=== PATIENT | male | born 1950 | race Caucasian/White ===

== ENCOUNTER 2018-09-17 13:14 | Inpatient (IN) | payer BC, MEDICARE, OTHER ==
[~2018-09-17] VITALS: Ht 182.9 cm; Wt 86.6 kg
--- NOTE | 2018-09-17 13:40 | NUR ---
BIB [facility], OFF & ON DIZZINESS X 1 WK. BG 131. DENIES NUMBNESS/TINGLING @ THIS TIME. EXPERIENCING WEAKNESS WELL. PT IS AOX4, TACHYCARDIC, RR EVEN AND UNLABORED. SKIN INTACT AND NO ACUTE DISTRESS NOTED. HOOKED ON MONITOR AND READY FOR EVAL. AT BEDSIDE.
[2018-09-17] MEDS ORDERED: IV NS 0.9% 500 ML BAG IV ONE (14:00)
[2018-09-17 14:18] LABS: BASOPHILS # (AUTO) 0.1 /CMM (0.0-0.2); BASOPHILS % (AUTO) 0.8 % (0.0-2.0); EOSINOPHILS % (AUTO) 0.4 % (0.0-6.0); HEMATOCRIT 53 % (39-51); HEMOGLOBIN 17.2 g/dL (13.5-17.5); LYMPHOCYTES # (AUTO) 0.8 /CMM (0.8-4.8); LYMPHOCYTES % (AUTO) 7.1 % (20.0-44.0); MEAN CORPUSCULAR HGB CONC 33 g/dl (31.0-36.0); MEAN CORPUSCULAR VOLUME 86 fL (80-96); MONOCYTES # (AUTO) 1.4 /CMM (0.1-1.30); MONOCYTES % (AUTO) 11.9 % (2.0-12.0); NEUTROPHILS # (AUTO) 9.2 /CMM (1.8-8.9); NEUTROPHILS % (AUTO) 79.8 % (43.0-81.0); PLATELET COUNT (AUTO) 367 /CMM (150-450); WHITE BLOOD COUNT (AUTO) 11.5 K/uL (4.3-11.0)
[2018-09-17 14:25] LABS: CALCIUM, SERUM 9.9 mg/dL (8.5-10.1); CREATININE 1.6 mg/dL (0.6-1.3); POTASSIUM 3.8 mmol/L (3.5-5.1)
[2018-09-17 14:30] LABS: ALBUMIN 3.2 g/dL (3.4-5.0); BILIRUBIN,DIRECT 0.1 mg/dL (0.0-0.2); BILIRUBIN,TOTAL 0.5 mg/dL (0.2-1.0); TOTAL PROTEIN, SERUM 7.1 g/dL (6.4-8.2)
[2018-09-17] MEDS ORDERED: ONDANSETRON HCL/PF 4 MG/2 ML VIAL IV ONE (14:30)
[2018-09-17] MEDS ORDERED: IV NS 0.9% 1,000 ML BAG IV ONE (14:30)
[2018-09-17] MEDS ORDERED: ONDANSETRON HCL/PF 4 MG/2 ML VIAL ONE (14:46)
--- NOTE | 2018-09-17 14:49 | NUR ---
PT TAKEN TO CT VIA ANTELMO
--- NOTE | 2018-09-17 15:20 | NUR ---
CALLED [employer] FIELD SERVICE TECHNICIAN POULTRY WAS PAGED.
--- NOTE | 2018-09-17 15:28 | NUR ---
PT RESTING COMFORTABLY IN BED. NO COMPLAINTS AT THIS TIME. WILL CONT TO MONITOR.
[2018-09-17] MEDS ORDERED: IV D5/0.45 NACL 1,000 ML IV ONE (15:30)
[2018-09-17] MEDS ORDERED: EMPA10TA PO (15:35)
[2018-09-17] MEDS ORDERED: SALM50DI IH (15:35)
[2018-09-17] MEDS ORDERED: MULT-447 PO (15:35)
[2018-09-17] MEDS ORDERED: IPRA12.9 INH (15:35)
[2018-09-17] MEDS ORDERED: ALBU18HF2 INH (15:35)
--- NOTE | 2018-09-17 16:06 | NUR ---
CALLED [employer] GROUP CAPTAIN WAS PAGED.
--- NOTE | 2018-09-17 18:02 | NUR ---
ASSISTED PT TO RESTROOM VIA WC
--- NOTE | 2018-09-17 19:03 | NUR ---
PT RESTING COMFORTABLY WITH AT BEDSIDE. NO COMPLAINTS AT THIS TIME. VSS.
--- NOTE | 2018-09-17 20:38 | NUR ---
ASSISTED PT TO RESTROOM
--- NOTE | 2018-09-17 21:32 | NUR ---
TRANSFER CONSENT SIGNED AND PLACED IN CHART
--- NOTE | 2018-09-17 22:18 | NUR ---
PT IS GOING TO TELE 328-2.
--- NOTE | 2018-09-17 22:59 | NUR ---
REPORT GIVEN TO [facility] CHOWDARY FOR 328-2 T
--- NOTE | 2018-09-17 23:15 | NUR ---
PT TRANSFERRED TO FLOOR
[2018-09-17 23:20] VITALS: BP_SYST 117; BP_SYST 136; BP_DIAS 78; BP_DIAS 84
--- NOTE | 2018-09-17 23:20 | NUR ---
MS NUCLEAR MEDICINE PET CT TECHNOLOGIST INITIAL NOTS ADMIT PT FROM ER VIA ANTELMO ACCOMPANIED BY ER NURSE AND HIS EDILSON. DX OF SMALL BOWEL OBSTRUCTIONS. PT IS ALERT ORIENTED X4 BUT SEEMS WEAK AT THIS TIME. DENIES ANY PAIN OR ANY DISCOMFORT. IVF FROM ER D51/2 NS INFUSING AT THIS TIME ON HIS LEFT AC. BREATHING EVEN AND UNLABORED. SKIN WARM AND DRY TO TOUCH . PER PATIENT ABLE TO WALKED USING WALKER AT HOME. AWARE WHERE HE AT AND ORIENTED HIM HOW TO USED THE CALL LIGHT SYSTEM AT ENCOURAGED HIM TO USE IT IF HE NEEDS SOME HELP. KEPT HIM WARM AND COMFORTABLE AT ALL TIMES. WITH 02 AT 3LITERS VIA TX. ON SEMI FOWLERS POSITION WITH SIDE RAILS X2 UP AND BED ALARM SET FOR SAFETY . WILL CONTINUE MONITORING. PLACE CALL LIGHT AT REACH.
[2018-09-17] MEDS ORDERED: ACETAMINOPHEN 650 MG/SUPP.RECT RC PRN (23:30)
[2018-09-17] MEDS ORDERED: DEXTROSE 50%-WATER 50 ML DISP.SYRIN IV PRN (23:30)
[2018-09-17] MEDS ORDERED: IPRATROPIUM NEB FS 0.5 MG/2.5 ML AMPUL.NEB NEB PRN (23:30)
[2018-09-17] MEDS ORDERED: ALBUTEROL FS 2.5 MG/3 ML VIAL.NEB NEB PRN (23:30)
[2018-09-17] MEDS ORDERED: ONDANSETRON HCL/PF 4 MG/2 ML VIAL IVP PRN (23:30)
[2018-09-17] MEDS ORDERED: HYDROMORPHONE INJ 2 MG/ML DISP.SYRIN IV PRN (23:30)
[2018-09-17] MEDS ORDERED: Z GUARD REMEDY 2 OZ OINT TP PRN (23:30)
[2018-09-18] MEDS: IV LR 1000 ML 1,000 ML IV PRN ×3 (02:09→21:09)
[2018-09-18 06:17] LABS: BASOPHILS # (AUTO) 0.1 /CMM (0.0-0.2); BASOPHILS % (AUTO) 0.5 % (0.0-2.0); EOSINOPHILS % (AUTO) 0.8 % (0.0-6.0); HEMATOCRIT 46 % (39-51); HEMOGLOBIN 15.2 g/dL (13.5-17.5); LYMPHOCYTES # (AUTO) 0.6 /CMM (0.8-4.8); LYMPHOCYTES % (AUTO) 5.8 % (20.0-44.0); MEAN CORPUSCULAR HGB CONC 33 g/dl (31.0-36.0); MEAN CORPUSCULAR VOLUME 86 fL (80-96); MONOCYTES # (AUTO) 1.4 /CMM (0.1-1.30); MONOCYTES % (AUTO) 13.6 % (2.0-12.0); NEUTROPHILS # (AUTO) 8.2 /CMM (1.8-8.9); NEUTROPHILS % (AUTO) 79.3 % (43.0-81.0); PLATELET COUNT (AUTO) 305 /CMM (150-450); RED BLOOD CELL COUNT(AUTO) 5.36 MIL/uL (4.5-6.0); WHITE BLOOD COUNT (AUTO) 10.3 K/uL (4.3-11.0)
[2018-09-18] MEDS: BLOOD SUGAR DIAGNOSTIC 1 EACH STRIP IN SCH ×4 (06:28→21:10)
[2018-09-18 06:54] LABS: CREATININE 1.5 mg/dL (0.6-1.3); PHOSPHORUS 3.6 mg/dL (2.5-4.9); POTASSIUM 3.5 mmol/L (3.5-5.1)
[2018-09-18 06:57] LABS: THYROID STIMULATING HORMONE 1.386 uIU/mL (0.358-3.74)
--- NOTE | 2018-09-18 07:26 | NUR ---
MS POLICYHOLDER INFORMATION CLERK CLOSING NOTES BLOOD SUGAR CHECKED DONE 189 NO SIGNS OF HYPER/HYPO GLYCEMIA NOTED. PT STILL NPO AT THIS TIME ORDERED. SLEPT WELL AND STABLE GENARO THE NIGHT. KEPT HIM WARM AND COMFORTABLE AT ALL TIMES. ON SEMI FOWLERS POSITION WITH SIDE RAILS X2 UP AND BED ALARM SET FOR SAFETY. ENDORSE TO AM NURSE DIALLO FOR CONTINUITY OF CARE. PLACE CALL LIGHT AT REACH.
--- NOTE | 2018-09-18 07:29 | NUR ---
MS RN OPENING NOTES PATIENT IS A/OX4, IN NO APPARENT DISTRESS. BEDSIDE RAILS ARE UPX2. BED IS LOCKED AND LOWERED. CALL LIGHT WITHIN REACH. IV LINE IS INTACT AND PATENT. WILL CONTINUE TO MONITOR.
[2018-09-18 08:00] VITALS: BP 137/84
[2018-09-18] MEDS: HEPARIN SODIUM, PORCINE 5000 UNITS/1 ML VIAL SQ SCH ×2 (08:19→20:46)
[2018-09-18 16:00] VITALS: BP_SYST 108; BP_SYST 126; BP_DIAS 70; BP_DIAS 82
--- NOTE | 2018-09-18 18:07 | NUR ---
MS RN CLOSING NOTES PATIENT IS IN STABLE CONDITION. IN NO APPARENT DISTRESS. BEDSIDE RAILS ARE UPX2. BED IS LOCKED AND LOWERED. CALL LIGHT IS WITHIN REACH. IV LINE IS INTACT AND PATENT. ALL NEEDS WERE MET. WILL ENDORSE CARE TO SOAP PRESS FEEDER NURSE FOR PAPITO.
--- NOTE | 2018-09-18 19:00 | NUR ---
MS RN RECEIVED PT ON BED, A/O X 3, NOT IN ANY FORM OF DISTRESS, RESPIRATIONS EVEN AND UNLABORED, NO SOB NOTED, STABLE CONDITION. SAFETY MEASURES IN PLACE. WILL CONTINUE TO MONITOR.
[2018-09-18 20:00] VITALS: BP 135/85
[2018-09-18] MEDS: INSULIN REGULAR, HUMAN 100 UNIT/ML 3 ML VIAL SQ PRN (21:10)
--- NOTE | 2018-09-18 21:31 | NUR ---
MS RN NON ADMIN OF INSULIN NPO DIAGNOSIS SLIDING COVERAGE BLOOD SUGAR 147 MG/DL PT ALSO REFUSED IT PER PT HE DOESNT TAKE IT. HEALTH TEACHINGS PROVIDED
[2018-09-18 21:48] VITALS: BP 135/85
[2018-09-19] VITALS (12 sets, daily range): BP systolic 106–133; BP diastolic 64–81
[2018-09-19] MEDS: IV LR 1000 ML 1,000 ML IV PRN ×2 (05:07→21:37)
[2018-09-19] MEDS: INSULIN REGULAR, HUMAN 100 UNIT/ML 3 ML VIAL SQ PRN ×2 (06:00→22:00)
[2018-09-19] MEDS: BLOOD SUGAR DIAGNOSTIC 1 EACH STRIP IN SCH ×4 (06:00→21:11)
--- NOTE | 2018-09-19 06:26 | NUR ---
RN CLOSING NOTE ASLEEP AND EASILY AWAKEN, NOT IN DISTRESS. MAINTAINS NPO, STABLE, RESPIRATIONS EVEN AND UNLABORED. NURSING CARE RENDERED, KEPT CLEAN AND DRY AND COMFORT, NEEDS ATTENDED AND ANTICIPATED. NO COMPLAIN OF PAIN, SAFETY MEASURES IN PLACE, CALL LIGHT WITHIN REACH. WILL ENDORSE TO THE NEXT SHIFT.
--- NOTE | 2018-09-19 07:10 | NUR ---
PT IN BED , A/O X4. PT NPO STATUS FOR PROCEDURE. NO DISTRESS NOTED, NO COMPLAINOF PAIN AT THIS TIME, IV FLUID RUNNING AT 125ML/HR. SAFETY PRECAUTIONS IN PLACE . WILL CONTINUE TO MONITOR
[2018-09-19 09:11] LABS: BASOPHILS % (AUTO) 0.5 % (0.0-2.0); EOSINOPHILS % (AUTO) 2.2 % (0.0-6.0); HEMATOCRIT 45 % (39-51); HEMOGLOBIN 14.7 g/dL (13.5-17.5); LYMPHOCYTES # (AUTO) 0.7 /CMM (0.8-4.8); LYMPHOCYTES % (AUTO) 8.5 % (20.0-44.0); MEAN CORPUSCULAR HGB CONC 33 g/dl (31.0-36.0); MEAN CORPUSCULAR VOLUME 86 fL (80-96); MONOCYTES # (AUTO) 1.1 /CMM (0.1-1.30); MONOCYTES % (AUTO) 12.7 % (2.0-12.0); NEUTROPHILS # (AUTO) 6.5 /CMM (1.8-8.9); NEUTROPHILS % (AUTO) 76.1 % (43.0-81.0); PLATELET COUNT (AUTO) 248 /CMM (150-450); RED BLOOD CELL COUNT(AUTO) 5.21 MIL/uL (4.5-6.0); WHITE BLOOD COUNT (AUTO) 8.6 K/uL (4.3-11.0)
[2018-09-19 09:25] LABS: CREATININE 1.2 mg/dL (0.6-1.3); MAGNESIUM 1.9 mg/dL (1.8-2.4); PHOSPHORUS 3.1 mg/dL (2.5-4.9); POTASSIUM 3.8 mmol/L (3.5-5.1)
[2018-09-19] MEDS ORDERED: IV D5W 1,000 ML IV PRN (09:52)
[2018-09-19] MEDS: HEPARIN SODIUM, PORCINE 5000 UNITS/1 ML VIAL SQ SCH ×2 (09:53→21:11)
--- NOTE | 2018-09-19 10:00 | NUR ---
CHANGE ORDER FOR UPPER GI /BOWEL TO STAT PER DR. ADKINS
[2018-09-19] MEDS ORDERED: DIATR MEGLU/DIATRIZOATE SODIUM 120 ML BOTTLE (GASTROGRAPHIN) ONE (11:59)
--- NOTE | 2018-09-19 12:15 | NUR ---
PT PICKED UP BY RADIOLOGY STAFF FOR PROCEDURE
--- NOTE | 2018-09-19 15:10 | NUR ---
RECEIVED TELEPHONE ORDER FROM DR. ADKINS : TO GET CONSENT FOR POSSIBLE SURGERY ( EXPLORATORY LAPAROSCOPIC RELIEVE SMALL BOWEL OBSTRUCTION WITH POSSIBLE BOWEL RESECTION.
--- NOTE | 2018-09-19 16:30 | NUR ---
CONSENT FOR THE SURGERY OBTAINED
[2018-09-19] MEDS ORDERED: ANESTHESIA TRAY IN PYXIS 1 EA TRAY MC ONE (17:02)
[2018-09-19] MEDS ORDERED: SUCCINYLCHOLINE CHLORIDE 20 MG/ML VIAL ONE (17:06)
[2018-09-19] MEDS ORDERED: ROCURONIUM BROMIDE 50 MG/5 ML ONE (17:06)
[2018-09-19] MEDS ORDERED: FENTANYL PF 250MCG/5ML AMPUL ONE (17:06)
[2018-09-19] MEDS ORDERED: MIDAZOLAM HCL 2 MG/2ML VIAL ONE (17:06)
--- NOTE | 2018-09-19 17:10 | NUR ---
PATIENT PICKED UP BY OR STAFF, PT ALERT ORIENTED , VS ARE STABLE , NO DISTRESS NOTED
[2018-09-19] MEDS ORDERED: LIDOCAINE 1% INJ 50 ML MDV IJ ONE (19:18)
[2018-09-19] MEDS ORDERED: BUPIVACAINE MPF W/EPI 0.25% 30 ML VIAL ONE (19:18)
--- NOTE | 2018-09-19 19:24 | NUR ---
PT STILL ON O.R AWAITING PT
[2018-09-19] MEDS ORDERED: BACITRACIN/POLYMYXIN B 15 GM TUBE TP ONE (20:09)
--- NOTE | 2018-09-19 20:52 | NUR ---
PT CAME BACK FROM O.R PT GALI WILL ASSESS PT
--- NOTE | 2018-09-19 20:55 | NUR ---
RECEIVE PT VIA BED WITH 2 FIRMWARE ARCHITECT PT A/O X 4 , RESPIRATIONS EVEN AND UNLABORED. VS PER PROTOCOL S/P EX LAP, STARTED ON L/R AT 150 ML/HR VIA IVP. SHER CATH INTACT DRAINING YELLOW VIA GRAVITY, ON 2LPM VIA NC 02 SAT AT 93%. G TUBE INTACT ATTACH TO LOW INTERMITTENT SUCTION. VS STABLE. DRESSING INTACT TO R SIDE LOWER AND UPPER ABDOMEN. PT REFUSED PHOTOS TO BE TAKE PER PT "I JUST WANNA REST". SAFETY MEASURES IMPLEMENTED. WILL CONTINUE TO MONITOR,RECIEVE POST-OP ORDERS FROM DR. ADKINS NOTED
--- NOTE | 2018-09-19 21:11 | NUR ---
PER DR. LUCILLE PAGE TO GIVE HEPARIN
--- NOTE | 2018-09-19 21:30 | NUR ---
CLARIFICATION OF ORDER PAGED DR. LUCILLE Page SPOKE TO HIM CLARIFY ORDERS OF DILAUDID DOSE PER DR. ADKINS ORDERED DILAUDID 1 MG IVP Q2 PRN AND ZOFRAN 4 MG IV Q4 PRN AND LR 150 ML/HR DC PREVIOUS ORDER OF ZOFRAN AND DILAUDID AND PREVIOUS IV FLUID. DC ALSO LOVENOX 40 MG SQ AND CONTINUE WITH THE HEPARIN PREVIOUS ORDER. ALL ORDERS READ BACK AND VERIFIED NOTED AND CARRIED OUT
[2018-09-19] MEDS: HYDROMORPHONE INJ 2 MG/ML DISP.SYRIN IV PRN (21:59)
--- NOTE | 2018-09-19 22:00 | NUR ---
NON ADMIN OF INSULIN NPO DIAGNOSIS SLIDING COVERAGE BLOOD SUGAR 160 MG/DL PT ALSO REFUSED IT PER PT HE DOESN'T TAKE INSULIN. HEALTH TEACHINGS PROVIDED. DR. ADKINS AWARE
[2018-09-20 00:30] VITALS: BP 120/87
[2018-09-20 01:30] VITALS: BP 114/81
[2018-09-20] MEDS: IV LR 1000 ML 1,000 ML IV PRN ×3 (04:06→21:36)
[2018-09-20 05:30] VITALS: BP 110/71
[2018-09-20] MEDS: BLOOD SUGAR DIAGNOSTIC 1 EACH STRIP IN SCH ×4 (06:18→21:26)
[2018-09-20] MEDS: INSULIN REGULAR, HUMAN 100 UNIT/ML 3 ML VIAL SQ PRN ×2 (06:18→21:32)
[2018-09-20] MEDS: HYDROMORPHONE INJ 2 MG/ML DISP.SYRIN IV PRN ×4 (06:27→19:54)
--- NOTE | 2018-09-20 06:32 | NUR ---
RN CLOSING NOTE ASLEEP AND EASILY AWAKEN, ON 2LPM VIA NC 02 SAT 95%. RESPIRATIONS EVEN AND UNLABORED. NURSING CARE RENDERED, KEPT CLEAN AND DRY AND COMFORT, NEEDS ATTENDED AND ANTICIPATED. NO OUTPUT FROM THE GTUBE SITE. STILL ON G TUBE ON LOW INTERMITTENT SUCTION. STABLE THROUGHOUT THE SHIFT. SAFETY MEASURES IN PLACE, CALL LIGHT WITHIN REACH. WILL ENDORSE TO THE NEXT SHIFT.
--- NOTE | 2018-09-20 07:00 | NUR ---
RECEIVED PT IN BED, ASLEEP AND EASILY AWAKEN, ON 2LPM VIA NC 02 SAT 95%. RESPIRATIONS EVEN AND UNLABORED. NO OUTPUT FROM THE GTUBE SITE AT THIS TIME, G-TUBE ON LOW INTERMITTENT SUCTION.F/C IN PLACE. SAFETY MEASURES IN PLACE, CALL LIGHT WITHIN REACH.WILL CONTINUE TO MONITOR
[2018-09-20 08:36] LABS: BASOPHILS % (AUTO) 0.2 % (0.0-2.0); HEMATOCRIT 48 % (39-51); HEMOGLOBIN 15.4 g/dL (13.5-17.5); LYMPHOCYTES # (AUTO) 0.4 /CMM (0.8-4.8); LYMPHOCYTES % (AUTO) 1.9 % (20.0-44.0); MEAN CORPUSCULAR HGB CONC 32 g/dl (31.0-36.0); MEAN CORPUSCULAR VOLUME 87 fL (80-96); MONOCYTES # (AUTO) 1.1 /CMM (0.1-1.30); MONOCYTES % (AUTO) 5.2 % (2.0-12.0); NEUTROPHILS # (AUTO) 18.7 /CMM (1.8-8.9); NEUTROPHILS % (AUTO) 92.7 % (43.0-81.0); PLATELET COUNT (AUTO) 281 /CMM (150-450); RED BLOOD CELL COUNT(AUTO) 5.47 MIL/uL (4.5-6.0); WHITE BLOOD COUNT (AUTO) 20.2 K/uL (4.3-11.0)
[2018-09-20 08:55] VITALS: BP 106/61
[2018-09-20 09:00] LABS: CALCIUM, SERUM 8.5 mg/dL (8.5-10.1); CREATININE 1.5 mg/dL (0.6-1.3); MAGNESIUM 1.6 mg/dL (1.8-2.4); PHOSPHORUS 4.7 mg/dL (2.5-4.9); POTASSIUM 4.2 mmol/L (3.5-5.1)
[2018-09-20] MEDS: HEPARIN SODIUM, PORCINE 5000 UNITS/1 ML VIAL SQ SCH ×2 (09:00→21:31)
[2018-09-20] MEDS ORDERED: Magnesium 1GM/D5W 100ML PREMIX PIGGYBACK IV ONE (10:30)
[2018-09-20] MEDS ORDERED: Magnesium 1GM/D5W 100ML PREMIX 100 ML IV SCH (11:00)
[2018-09-20 14:17] LABS: NEUTROPHILS % (MANUAL) 82 (42-76)
[2018-09-20 14:18] LABS: BAND % (MANUAL) 11 % (0.0-5.0); LYMPHOCYTES % (MANUAL) 1 % (16-48); MONOCYTES % (MANUAL) 6 % (0-11.0)
[2018-09-20 16:04] VITALS: BP 112/55
--- NOTE | 2018-09-20 17:52 | NUR ---
PT REFUSED TO CHECK BLOOD SUGAR
--- NOTE | 2018-09-20 19:15 | NUR ---
PT SEEN BY AT THE BED SIDE. PT IN STABLE CONDITION, FAMILY AT BEDSIDE. WILL ENDORSE TO NEXT SHIFT FOR PAPITO.
--- NOTE | 2018-09-20 19:20 | NUR ---
MS RN RECEIVED PT ON BED, A/O X 3, G TUBE IN PLACE, NOT IN ANY FORM OF DISTRESS, RESPIRATIONS EVEN AND UNLABORED, NO SOB NOTED, STABLE CONDITION. SAFETY MEASURES IN PLACE. WILL CONTINUE TO MONITOR.
--- NOTE | 2018-09-20 19:40 | NUR ---
TRANSFERRED TO ROOM 200-1 WITH IN STABLE CONDITION WITH ALL BELONGINGS TAKEN
[2018-09-20 20:30] VITALS: BP 108/64
--- NOTE | 2018-09-20 22:46 | NUR ---
MS RN NOTES PAGED DR. ADKINS CLARIFIED ORDERS IF HE WANTS ME TO GIVE BOLUS. PER DR. ADKINS BOLUS LR 500 ML/HR ONE TIME IV AND RESUME TO LR 150 ML/HR IV ORDERED
[2018-09-20] MEDS ORDERED: IV LR 500 ML IV ONE ×2 (23:00)
[2018-09-21] VITALS: BP 124/77
[2018-09-21] MEDS: HYDROMORPHONE INJ 2 MG/ML DISP.SYRIN IV PRN ×4 (02:18→22:19)
[2018-09-21] MEDS: IV LR 1000 ML 1,000 ML IV PRN ×3 (04:49→22:17)
[2018-09-21] MEDS: BLOOD SUGAR DIAGNOSTIC 1 EACH STRIP IN SCH ×4 (05:48→22:07)
[2018-09-21] MEDS: INSULIN REGULAR, HUMAN 100 UNIT/ML 3 ML VIAL SQ PRN (05:49)
--- NOTE | 2018-09-21 06:15 | NUR ---
ASLEEP AND EASILY AWAKEN, ON 2LPM VIA NC 02 SAT 98%. RESPIRATIONS EVEN AND UNLABORED. G-TUBE SITE INTACT STILL ON LOW INTERMITTENT SUCTION 5 ML OUTPUT BROWNISH, STABLE THROUGHOUT THE SHIFT. NEEDS ATTENDED AND ANTICIPATED, KEPT CLEAN AND DRY AND COMFORT. PT REFUSED REMOVED ABDOMINAL DRESSING DESPITE EXPLAINING RISKS AND BENEFITS. DRESSING DRY AND INTACT NO S/S OF BLEEDING. SAFETY MEASURES IN PLACE, CALL LIGHT WITHIN REACH. WILL ENDORSE TO THE NEXT SHIFT. Addendum: 09/21/18 at 0632 by YOSSI HO RN ASSISTED REPOSITION EVERY 2 HOURS
[2018-09-21 07:20] LABS: CALCIUM, SERUM 8.3 mg/dL (8.5-10.1); CREATININE 1.3 mg/dL (0.6-1.3); MAGNESIUM 1.7 mg/dL (1.8-2.4); PHOSPHORUS 3.8 mg/dL (2.5-4.9); POTASSIUM 4.1 mmol/L (3.5-5.1)
--- NOTE | 2018-09-21 07:30 | NUR ---
MS RN Opening Note Patient awake, resting in bed. Alert and oriented x4. No complaints of pain at this time. Respirations even and unlabored on 2 L oxygen via nasal cannula, no acute distress noted. Peripheral IV to the right hand 24 gauge, intact, patent and infusing LR at 150 mL/hr. Sadler catheter in place, intact, patent and draining clear, yellow urine. G-tube to abdomen, positive placement verified; Intermittent suction with minimal output. Abdominal dressing clean, dry and intact. Updated patient on current plan of care and safety measures. Safety and fall precautions in place: bed in lowest and locked position, side rails up x2, bed alarm on, call light and personal possessions within reach. Patient verbalized understanding. Patient to be evaluated by physical therapy today. Will continue to monitor and intervene as needed.
[2018-09-21 08:03] VITALS: BP 125/66
[2018-09-21] MEDS: HEPARIN SODIUM, PORCINE 5000 UNITS/1 ML VIAL SQ SCH ×2 (08:48→22:10)
[2018-09-21] MEDS: Magnesium 1GM/D5W 100ML PREMIX 100 ML IV SCH ×2 (10:46→12:26)
[2018-09-21 16:00] VITALS: BP 112/62
--- NOTE | 2018-09-21 19:30 | NUR ---
MS RN Closing Note Patient awake, resting in bed. Alert and oriented x4. No complaints of pain at this time. Respirations even and unlabored on room air, no acute distress noted. Peripheral IV to the right hand 24 gauge, intact, patent and infusing LR at 150 mL/hr. Sadler catheter in place, intact, patent and draining clear, yellow urine. G-tube to abdomen, positive placement verified; Intermittent suction with minimal output. Abdominal dressing clean, dry and intact. Updated patient on current plan of care and safety measures. Safety and fall precautions in place: bed in lowest and locked position, side rails up x2, bed alarm on, call light and personal possessions within reach. Patient verbalized understanding. Will endorse to warehouse supervisor 3rd shift RN for continuity of care.
[2018-09-21 20:00] VITALS: BP 118/59
--- NOTE | 2018-09-21 20:00 | NUR ---
MS/RN RECEIVE PATIENT AWAKE, ALERT, ORIENTED, COMFORTABLE, NO C/O PAIN, NO DISTRESS NOTED, DRESSING TO ABDOMEN INTACT, NO SIGNS OF BLEEDING NOTED. CALL LIGHT IN REACH. WILL MONITOR.
--- NOTE | 2018-09-21 23:07 | NUR ---
MS/RN DR. ADKINS CALLED ASKING UPDATES FOR THE PATIENT, ORDER TO D/C IV FLUIDS RECEIVED. CARRIED OUT.
--- NOTE | 2018-09-21 23:33 | NUR ---
MS/RN PATIENT IS SLEEPING AT THIS TIME, APPEAR COMFORTABLE, BREATHING EVEN AND UNLABORED, CALL LIGHT IN REACH. WILL CONTINUE TO MONITOR.
[2018-09-22 06:20] LABS: HEMATOCRIT 41 % (39-51); HEMOGLOBIN 13.3 g/dL (13.5-17.5); LYMPHOCYTES % (AUTO) 3.1 % (20.0-44.0); MEAN CORPUSCULAR HGB CONC 33 g/dl (31.0-36.0); MEAN CORPUSCULAR VOLUME 87 fL (80-96); MONOCYTES % (AUTO) 10.4 % (2.0-12.0); NEUTROPHILS % (AUTO) 85.2 % (43.0-81.0); PLATELET COUNT (AUTO) 260 /CMM (150-450); RED BLOOD CELL COUNT(AUTO) 4.68 MIL/uL (4.5-6.0); WHITE BLOOD COUNT (AUTO) 17.3 K/uL (4.3-11.0)
[2018-09-22 06:21] LABS: BASOPHILS % (AUTO) 0.3 % (0.0-2.0); LYMPHOCYTES # (AUTO) 0.5 /CMM (0.8-4.8); MONOCYTES # (AUTO) 1.8 /CMM (0.1-1.30); NEUTROPHILS # (AUTO) 14.7 /CMM (1.8-8.9)
--- NOTE | 2018-09-22 06:25 | NUR ---
MS/RN ACCU CHECK BLOOD SUGAR 144, PATIENT REFUSED INSULIN BECAUSE PATIENT STATED HE IS NOT EATING MUCH. ALL NEEDS ATTENDED AT THIS TIME. WILL CONTINUE TO MONITOR.
[2018-09-22] MEDS: ONDANSETRON HCL/PF 4 MG/2 ML VIAL IV PRN ×3 (06:29→18:54)
--- NOTE | 2018-09-22 06:33 | NUR ---
MS/RN PATIENT REPORTS NAUSEA AND VOMITING X1, ZOFRAN 4 MG IVP WAS GIVEN ORDERED. WILL MONITOR.
[2018-09-22 06:42] LABS: CALCIUM, SERUM 8.5 mg/dL (8.5-10.1); CREATININE 1.2 mg/dL (0.6-1.3); PHOSPHORUS 2.3 mg/dL (2.5-4.9)
--- NOTE | 2018-09-22 07:45 | NUR ---
RN NOTES PATIENT ASLEEP BUT EASILY AWAKEN, NO DISTRESS NOTED, GT KEPT ON LOW INTERMITTENT SUCTION WITH GREENISH DISCHARGE. KEPT COMFORTABLE, CALL LIGHT WITHIN REACH, WILL CONTINUE TO MONITOR.
[2018-09-22] MEDS: BLOOD SUGAR DIAGNOSTIC 1 EACH STRIP IN SCH ×4 (07:47→22:06)
[2018-09-22 08:00] VITALS: BP 140/72
[2018-09-22] MEDS: HEPARIN SODIUM, PORCINE 5000 UNITS/1 ML VIAL SQ SCH ×2 (08:38→21:08)
[2018-09-22] MEDS: HYDROMORPHONE INJ 2 MG/ML DISP.SYRIN IV PRN (08:44)
--- NOTE | 2018-09-22 09:54 | NUR ---
RN NOTES RELAYED WBC RESULT TO DR. ADKINS, RECEIVED NEW ORDER TO START CIPRO 400MG IV Q12HRS AND FLAGYL 500MG IV Q12HRS. ORDER NOTED AND CARRIED OUT. Addendum: 09/22/18 at 1721 by SUMA KEARNEY RN ADDENDUM: CLARIFIED WITH DR. ADKINS, RE: FLAGYL ORDER, PER PHARMACY STANDARD DOSE IS Q8HRS. PER DR. ADKINS, CHANGE ORDER TO Q8HRS.
[2018-09-22] MEDS ORDERED: METRONIDAZOLE 500MG/ NS 100ML 500 MG in PREMIX 1 EA IV SCH (10:00)
--- NOTE | 2018-09-22 11:00 | NUR ---
RN NOTES OFFERED TO TURN AND REPOSITION, PER PATIENT HE'S COMFORTABLE AT THIS TIME. REFUSED TO MOVE AT THIS TIME DUE TO PAIN.
[2018-09-22] MEDS: CIPROFLOXACIN IV RTU 400 MG in PREMIX 1 EA IV SCH ×2 (11:11→22:31)
--- NOTE | 2018-09-22 11:38 | NUR ---
RN NOTES BS 133, INSULIN COVERAGE HELD AT THIS TIME, DUE TO PATIENT BEING NPO FOR XRAYS.
[2018-09-22] MEDS: METRONIDAZOLE 500MG/ NS 100ML 500 MG in PREMIX 1 EA IV SCH ×2 (13:15→21:04)
[2018-09-22] MEDS ORDERED: K PHOS NEUTRAL 250 MG TABLET PO ONE (14:00)
--- NOTE | 2018-09-22 14:05 | NUR ---
RN NOTES PATIENT TRANSFERRED TO RADIOLOGY. GT CLAMPED AT THIS TIME.
[2018-09-22] MEDS ORDERED: DIATR MEGLU/DIATRIZOATE SODIUM 120 ML BOTTLE (GASTROGRAPHIN) ONE ×2 (14:12→14:45)
[2018-09-22 16:00] VITALS: BP 132/85
--- NOTE | 2018-09-22 16:15 | NUR ---
RN NOTES PATIENT CAME BACK FROM RADIOLOGY. IN STABLE CONDITION.
[2018-09-22] MEDS ORDERED: IV LR 1000 ML 1,000 ML IV PRN (16:30)
--- NOTE | 2018-09-22 16:40 | NUR ---
RN NOTES DR. ADKINS GAVE AN ORDER TO GIVE 500ML OF LR X2, 1 HOUR EACH, A TOTAL OF 1000ML OF LR. PHARMACY MADE AWARE.
--- NOTE | 2018-09-22 16:45 | NUR ---
RN NOTES CLARIFIED WITH DR. ADKINS RE: Erik ROTH, PER , OK TO GIVE AFTER PROCEDURE. KEEP PATIENT NPO AT THIS TIME.
[2018-09-22] MEDS ORDERED: ANESTHESIA TRAY IN PYXIS 1 EA TRAY MC ONE (16:52)
--- NOTE | 2018-09-22 16:58 | NUR ---
RN NOTES PATIENT SEEN AND EXAMINED BY DR. ADKINS, DISCUSSED TREATMENT WITH FAMILY. EXPLAINED EGD PROCEDURE WITH POSSIBLE DILATATION. FAMILY UNDERSTANDS RISKS AND BENEFITS OF PROCEDURE, CONSENTS SIGNED. PATIENT IN STABLE CONDITION, NO DISTRESS NOTED, GT CLAMPED AT THIS TIME. IVF LR INFUSING AND TOLERATING WELL. CHECKLIST PREPARED, AND PATIENT TRANSFERRED TO OR FOR PROCEDURE.
--- NOTE | 2018-09-22 18:02 | NUR ---
RN NOTES PATIENT CAME BACK FROM OR, DR. ADKINS AND PANDA GARDINER AT BEDSIDE WITH FAMILY. PATIENT IN STABLE CONDITION, VSS. WILL CONTINUE TO MONITOR.
[2018-09-22 18:04] VITALS: BP 131/78
[2018-09-22] MEDS: INSULIN REGULAR, HUMAN 100 UNIT/ML 3 ML VIAL SQ PRN (18:15)
--- NOTE | 2018-09-22 18:23 | NUR ---
RN NOTES PER DR. ADKINS, KEEP PATIENT NPO AT THIS TIME.
[2018-09-22] MEDS ORDERED: IV 1/2NS 1000 ML 1,000 ML IV PRN (18:30)
[2018-09-22] MEDS: PANTOPRAZOLE 40 MG VIAL IV SCH (18:45)
--- NOTE | 2018-09-22 19:15 | NUR ---
MS RN NOTES RECEIVE PATIENT ALERT AND AWAKE IN BED, WITH FAMILY AT BEDSIDE. NO C/O PAIN AT THIS TIME. BREATHING EVEN AND UNLABORED WITH NO S/S OF DISTRESS OR SOB NOTED. DRESSING TO ABDOMEN INTACT WITH NO SIGNS OF BLEEDING NOTED. IV RIGHT HAND #[id number]. CALL LIGHT WITHIN REACH. WILL CONTINUE TO MONITOR.
--- NOTE | 2018-09-22 19:34 | NUR ---
RN NOTES PATIENT IN NO DISTRESS, VSS, NO SOB NOTED, TURNED AND REPOSITIONED, NEEDS ATTENDED AND MET, CALL LIGHT WITHIN REACH, WILL ENDORSE TO PATTERNMAKER PLASTICS FOR PAPITO.
[2018-09-22 20:00] VITALS: BP 137/68
[2018-09-22] MEDS ORDERED: BISACODYL SUPP (10 MG) 10 MG/SUPP.RECT SUPP.RECT RC PRN (21:00)
[2018-09-22] MEDS ORDERED: NA PHOS,M-B/NA PHOS,DI-BA 1 EA ENEMA RC PRN (21:00)
[2018-09-22] MEDS: IV 1/2NS 1000 ML 1,000 ML IV PRN (21:05)
[2018-09-22] MEDS: SUCRALFATE 1 G TABLET PO SCH (21:18)
--- NOTE | 2018-09-22 22:04 | NUR ---
MS/RN FLEET ENEMA DONE ORDERED. WILL MONITOR FOR BOWEL MOVEMENT.
--- NOTE | 2018-09-22 23:30 | NUR ---
MS/RN FLUID MATERIAL WITH MUCUS AND BROWNISH PARTICLES NOTED IN THE UNDER PADS, ANOTHER FLEET ENEMA GIVEN ORDERED. WILL CONTINUE TO MONITOR.
--- NOTE | 2018-09-23 02:04 | NUR ---
MS/RN SMALL AMOUNT OF BROWNISH COLORED FLUID NOTED IN THE UNDER PADS, NOT A GOOD BOWEL MOVEMENT. DULCOLAX SUPPOSITORY GIVEN ORDERED. WILL CONTINUE TO MONITOR.
--- NOTE | 2018-09-23 04:23 | NUR ---
MS/RN SPOKE TO LINDA IN RADIOLOGY RE: SBFT, PER LINDA THE PROCEDURE IS DONE AND MAY CONNECT TO SUCTION NOW.
[2018-09-23] MEDS: METRONIDAZOLE 500MG/ NS 100ML 500 MG in PREMIX 1 EA IV SCH ×3 (04:53→21:20)
--- NOTE | 2018-09-23 05:02 | NUR ---
MS/RN MORNING CARE DONE, SMEAR OF BROWN LIQUID IN THE UNDER PADS NOTED, NO GOOD BM NOTED, TOTAL LINEN CHANGE DONE GT SITE DRESSING CHANGED, GT CONNECTED BACK TO SUCTION WITH GREEN LIQUID OUTPUT NOTED. REPOSITIONED TO COMFORT. WILL CONTINUE TO MONITOR.
--- NOTE | 2018-09-23 05:47 | NUR ---
MS/RN CALLED EDILSON GAVE UPDATE RE: ENEMA OUTCOME, PER HER REQUEST.
[2018-09-23] MEDS: BLOOD SUGAR DIAGNOSTIC 1 EACH STRIP IN SCH ×4 (07:09→22:47)
--- NOTE | 2018-09-23 07:11 | NUR ---
MS RN NOTES PT ASLEEP IN BED BUT EASILY AWOKEN VERBALLY OR BY TOUCH. NO C/O PAIN AT THIS TIME. SHER EMPTY 575CC, GT 600CC. BREATHING EVEN AND UNLABORED WITH NO S/S OF DISTRESS OR SOB NOTED. DRESSING TO ABDOMEN INTACT WITH NO SIGNS OF BLEEDING NOTED, SACRAL REDNESS. KUB DONE, RESULTS PENDING. IV RIGHT HAND #[id number] RUNNING 1/2 NS @125ML/HR. CALL LIGHT WITHIN REACH. WILL ENDORSE TO ONCOMING NURSE FOR CONTINUATION OF CARE.
[2018-09-23] MEDS: SUCRALFATE 1 G TABLET PO SCH ×4 (07:30→22:43)
[2018-09-23] MEDS: HYDROMORPHONE INJ 2 MG/ML DISP.SYRIN IV PRN ×3 (07:43→22:44)
[2018-09-23] MEDS: IV 1/2NS 1000 ML 1,000 ML IV PRN (07:45)
[2018-09-23 08:00] VITALS: BP 139/81
--- NOTE | 2018-09-23 08:15 | NUR ---
WOUND CARE CONSULT: PT PRESENTS WITH SACRAL SCARRING AND DEEP TISSUE INJURY (INTACT) WHICH EXTENDS TO BUTTOCKS. PT ALSO NOTED TO HAVE ABDOMINAL SURGICAL DRESSINGS WHICH ARE DRY AND INTACT AND G TUBE TO SUCTION. DEFER TO SURGEON FOR ABDOMINAL SURGICAL SITE AND G TUBE. RECOMMENDATIONS MADE FOR SACRAL AREA AND SKIN PROTECTION. DISCUSSED WITH NURSING STAFF. FIRST STEP LOW AIRLOSS MATTRESS ORDERED. CURRENT GABRIELLE SCORE IS 11. PT INCONTINENT OF SMALL AMOUNT OF SEMI-LIQUID STOOL. SHER CATH NOTED. WILL SEE PRN. MARTIN IN AGREEMENT WITH PLAN OF CARE. Addendum: 09/23/18 at 0818 by SHANNAN YEE WNDNU Amended: Links added.
[2018-09-23] MEDS: PANTOPRAZOLE 40 MG VIAL IV SCH (09:08)
[2018-09-23] MEDS: HEPARIN SODIUM, PORCINE 5000 UNITS/1 ML VIAL SQ SCH ×2 (09:09→22:46)
[2018-09-23 10:01] LABS: BASOPHILS # (AUTO) 0.1 /CMM (0.0-0.2); BASOPHILS % (AUTO) 0.6 % (0.0-2.0); HEMATOCRIT 40 % (39-51); HEMOGLOBIN 12.9 g/dL (13.5-17.5); LYMPHOCYTES # (AUTO) 0.5 /CMM (0.8-4.8); LYMPHOCYTES % (AUTO) 2.9 % (20.0-44.0); MEAN CORPUSCULAR HGB CONC 32 g/dl (31.0-36.0); MEAN CORPUSCULAR VOLUME 87 fL (80-96); MONOCYTES # (AUTO) 2.1 /CMM (0.1-1.30); MONOCYTES % (AUTO) 13.1 % (2.0-12.0); NEUTROPHILS # (AUTO) 13.3 /CMM (1.8-8.9); NEUTROPHILS % (AUTO) 82.4 % (43.0-81.0); PLATELET COUNT (AUTO) 276 /CMM (150-450); RED BLOOD CELL COUNT(AUTO) 4.58 MIL/uL (4.5-6.0); WHITE BLOOD COUNT (AUTO) 16.2 K/uL (4.3-11.0)
[2018-09-23 10:18] LABS: CALCIUM, SERUM 8.5 mg/dL (8.5-10.1); POTASSIUM 3.6 mmol/L (3.5-5.1)
--- NOTE | 2018-09-23 10:53 | NUR ---
RN NOTES PATIENT A/OX3, C/O ABDOMINAL PAIN, PATIENT SEEN AND EXAMINED BY SHANNAN WOUND NURSE, SKIN ASSESSMENT COMPLETED, PATIENT NOTED WITH DTI, WOUND TREATMENT ORDERED, NOTED AND CARRIED OUT. PATIENT TRANSFERRED TO A LOW AIR LOSS MATTRESS. TURNED AND REPOSITIONED, PANDA GARDINER CHEF'S ASSISTANT CAME AND ASSESSED THE PATIENT, CHEF'S ASSISTANT DID A RECTAL EXAM AND PATIENT IS CONSTIPATED. INFORMED THAT PATIENT HAS DTI. NO NEW ORDER AT THIS TIME. PATIENT OK TO HAVE CHIPS AND WATER. PHYSICAL THERAPY CAME AND WAS ABLE TO HELP PATIENT STAND UP AT THE EDGE OF THE BED. NEEDS ATTENDED AND MET, CALL LIGHT WITHIN REACH, WILL ENDORSE TO ADELE STAUFFER FOR PAPITO.
[2018-09-23] MEDS: CIPROFLOXACIN IV RTU 400 MG in PREMIX 1 EA IV SCH ×2 (11:02→22:58)
[2018-09-23] MEDS: INSULIN REGULAR, HUMAN 100 UNIT/ML 3 ML VIAL SQ PRN (12:10)
[2018-09-23 14:23] VITALS: BP 144/80
[2018-09-23 16:00] VITALS: BP 128/68
--- NOTE | 2018-09-23 19:33 | NUR ---
rn closing notes pt dozing intermittently; no sob. turned and repositioned during this shift. GT attached to LIS as ordered. tolerating po. enema done by Yoan Sexton earlier during the shift; pt tolerated well with 2 episodes of BM. at bs and aware with poc. endorsed to next shift rn for continuity of care in stable condition.
--- NOTE | 2018-09-23 20:00 | NUR ---
MS/RN RECEIVE PATIENT AWAKE, ALERT, ORIENTED, COMFORTABLE, NO C/O PAIN, NO DISTRESS NOTED, CALL LIGHT IN REACH. WILL MONITOR.
[2018-09-23 20:32] VITALS: BP 123/64
[2018-09-23] MEDS: IV D5/ 0.9% NACL 1,000 ML IV PRN (21:20)
--- NOTE | 2018-09-24 01:55 | NUR ---
MS/RN PATIENT IS SLEEPING AT THIS TIME, AROUSABLE, APPEAR COMFORTABLE, NO SIGNS OF DISTRESS NOTED, CALL LIGHT IN REACH. WILL CONTINUE TO MONITOR.
--- NOTE | 2018-09-24 04:56 | NUR ---
MS/RN MORNING CARE WAS DONE, GOOD SKIN CARE, TOTAL LINEN CHANGE PROVIDED. REPOSITIONED TO COMFORTABLE POSITION. WILL CONTINUE TO MONITOR.
[2018-09-24] MEDS: METRONIDAZOLE 500MG/ NS 100ML 500 MG in PREMIX 1 EA IV SCH ×3 (05:09→21:30)
--- NOTE | 2018-09-24 06:19 | NUR ---
MS/RN PATIENT IS AWAKE AT THIS TIME, COMFORTABLE, NO C/O PAIN, NO SIGNS OF DISTRESS NOTED, ALL NEEDS ATTENDED AT THIS TIME. WILL CONTINUE TO MONITOR.
--- NOTE | 2018-09-24 07:15 | NUR ---
MS RN NOTES PATIENT IN BED ALERT ORIENTED X4. NO ACUTE DISTRESS NOTED, BREATHING UNLABORED. NO SOB NOTED. IV ACCESS PATENT AND INTACT, NO REDNESS OR SWELLING NOTED. WITH GASTROSTOMY TUBE ON LOW INTERMITTENT SUCTION. SHER CATHETER INTACT, DRAINING WELL. SAFETY MEASURES IN PLACE. CALL LIGHT WITHIN REACH. WILL CONTINUE MONITOR ACCORDINGLY.
[2018-09-24] MEDS: SUCRALFATE 1 G TABLET PO SCH ×4 (07:30→21:31)
[2018-09-24 07:32] LABS: BASOPHILS # (AUTO) 0.2 /CMM (0.0-0.2); BASOPHILS % (AUTO) 1.3 % (0.0-2.0); EOSINOPHILS % (AUTO) 3.2 % (0.0-6.0); HEMATOCRIT 39 % (39-51); HEMOGLOBIN 12.5 g/dL (13.5-17.5); LYMPHOCYTES # (AUTO) 0.4 /CMM (0.8-4.8); MEAN CORPUSCULAR HGB CONC 33 g/dl (31.0-36.0); MEAN CORPUSCULAR VOLUME 86 fL (80-96); MONOCYTES # (AUTO) 1.6 /CMM (0.1-1.30); MONOCYTES % (AUTO) 10.8 % (2.0-12.0); NEUTROPHILS # (AUTO) 11.8 /CMM (1.8-8.9); NEUTROPHILS % (AUTO) 81.7 % (43.0-81.0); PLATELET COUNT (AUTO) 260 /CMM (150-450); RED BLOOD CELL COUNT(AUTO) 4.46 MIL/uL (4.5-6.0); WHITE BLOOD COUNT (AUTO) 14.5 K/uL (4.3-11.0)
[2018-09-24 07:40] LABS: ALBUMIN 1.5 g/dL (3.4-5.0); BILIRUBIN,TOTAL 0.5 mg/dL (0.2-1.0); CREATININE 0.8 mg/dL (0.6-1.3); MAGNESIUM 1.5 mg/dL (1.8-2.4); PHOSPHORUS 2.2 mg/dL (2.5-4.9); POTASSIUM 3.1 mmol/L (3.5-5.1); TOTAL PROTEIN, SERUM 4.7 g/dL (6.4-8.2)
[2018-09-24 08:00] VITALS: BP 127/68
[2018-09-24] MEDS: BLOOD SUGAR DIAGNOSTIC 1 EACH STRIP IN SCH ×4 (08:24→21:32)
[2018-09-24] MEDS: PANTOPRAZOLE 40 MG VIAL IV SCH (09:15)
[2018-09-24] MEDS: HEPARIN SODIUM, PORCINE 5000 UNITS/1 ML VIAL SQ SCH ×2 (09:23→21:32)
[2018-09-24] MEDS ORDERED: POTASSIUM CL. PREMIX PERIPHER. 50 ML IV SCH ×2 (09:55→13:30)
[2018-09-24] MEDS: Magnesium 1GM/D5W 100ML PREMIX 100 ML IV SCH ×2 (10:26→13:50)
[2018-09-24] MEDS: CIPROFLOXACIN IV RTU 400 MG in PREMIX 1 EA IV SCH ×2 (11:41→22:45)
--- NOTE | 2018-09-24 11:55 | NUR ---
MS RN NOTES SEEN AND EVALUATED BY VICE PRESIDENT EDUCATION PANDA GARDINER WITH NEW ORDERS MADE MAY ADVANCE DIET TOLERATED STARTING WITH CLEAR LIQUID CCHO CARDIAC DIET, NOTED AND CARRIED OUT.
[2018-09-24] MEDS: INSULIN REGULAR, HUMAN 100 UNIT/ML 3 ML VIAL SQ PRN ×3 (12:56→21:45)
[2018-09-24 15:58] VITALS: BP 123/64
[2018-09-24] MEDS ORDERED: NEUTRA PHOS 1 POWD.PACKET PO ONE (16:00)
[2018-09-24] MEDS ORDERED: POTASSIUM CHLORIDE 20 MEQ TAB.PRT.SR PO ONE (16:00)
[2018-09-24] MEDS: ENSURE CLEAR 237 ML LIQUID (MIX BERRY) PO SCH (17:37)
--- NOTE | 2018-09-24 19:00 | NUR ---
MS RN NOTES PATIENT IN BED ALERT ORIENTED X4. NO ACUTE DISTRESS NOTED, BREATHING UNLABORED. NO SOB NOTED. IV ACCESS PATENT AND INTACT, NO REDNESS OR SWELLING NOTED. WITH GASTROSTOMY TUBE ON LOW INTERMITTENT SUCTION. SHER CATHETER INTACT, DRAINING WELL. DUE MEDICATIONS GIVEN NO ASE NOTED. NEEDS ATTENDED AND ANTICIPATED. TURNED AND REPOSITION Q2H AND NEEDED. KEPT CLEAN DRY AND COMFORTABLE. SAFETY MEASURES IN PLACE. CALL LIGHT WITHIN REACH. ENDORSED TO NIGHT NURSE FOR CONTINUITY OF CARE.
--- NOTE | 2018-09-24 19:30 | NUR ---
MS/RN OPENING NOTES PT RECEIVED WITH EYES CLOSED, DAUGHTER SIMEON AT BEDSIDE [phone]. ON 2L O2 VIA NC, BREATHING EVEN AND UNLABORED. NO S/S OF SOB AND PAIN. RESTING COMFORTABLY IN BED. GT IN PLACE TO LOW INTERMITTENT SUCTION. SHER IN PLACE AND DRAINING TO GRAVITY. IV TO LAC PATENT AND INTACT RUNNING IVF ORDERED. DR. ADKINS SEEN AND ASSESSED PT. WITH NEW ORDERS, FAXED TO PHARMACY. BED IN LOW/LOCKED POSITION WITH CALL LIGHT IN REACH. BILATERAL UPPER SIDE RAILS IN PLACE, HOB ELEVATED. WILL CONTINUE TO MONITOR
[2018-09-24 20:00] VITALS: BP 131/68
[2018-09-24] MEDS ORDERED: GLUCERNA 1.2 1,000 ML BOTTLE NG PRN (20:30)
--- NOTE | 2018-09-24 20:46 | NUR ---
MS/RN NOTES SPOKE TO DELORIS FROM PHARMACY, VITAMIN B COMPLEX NOT AVAILABLE. WILL ENDORSE TO DAY SHIFT TO INFORM DR. ADKINS
[2018-09-24] MEDS: IV D5/ 0.9% NACL 1,000 ML IV PRN (21:30)
[2018-09-24] MEDS: CYANOCOBALAMIN 1,000 MCG/ML VIAL IM SCH (21:31)
[2018-09-24] MEDS: GLUCERNA 1.2 1,000 ML BOTTLE GT PRN (22:33)
--- NOTE | 2018-09-24 22:35 | NUR ---
MS/RN NOTES GLUCERNA 1.2 INITIATED AT 30CC/HR. HOB ELEVATED.
[2018-09-25] MEDS: METRONIDAZOLE 500MG/ NS 100ML 500 MG in PREMIX 1 EA IV SCH ×3 (05:44→21:08)
--- NOTE | 2018-09-25 06:45 | NUR ---
MS/RN NOTES GLUCERNA STOPPED AND FLUSHED. HOB REMAINS ELEVATED. WILL ENDORSE TO DAY SHIFT TO SUCTION IN 2 HOURS VIA GT FOR 15MINS, CHECK RESIDUAL AND NOTIFY DR. ADKINS. HOLD FEEDING IF RESIDUAL >150CC.
[2018-09-25] MEDS: SUCRALFATE 1 G TABLET PO SCH ×4 (06:46→21:08)
[2018-09-25] MEDS: BLOOD SUGAR DIAGNOSTIC 1 EACH STRIP IN SCH ×4 (06:46→23:07)
[2018-09-25] MEDS: INSULIN REGULAR, HUMAN 100 UNIT/ML 3 ML VIAL SQ PRN ×4 (06:53→23:11)
--- NOTE | 2018-09-25 07:00 | NUR ---
RN OPENING NOTES PT RESTING COMFORTABLY IN BED. NO APPARENT S/S OF PAIN, DISTRESS OR SOB AT THIS TIME. PT HAS A SHER CATHETER INTACT AND DRAINING WELL. PT HAS A LEFT AC #20 RUNNING D5NS @75ML/HR, PT TOLERATING WELL. PT HAS GTUBE, CURRENTLY ALL FEEDING HAS STOPPED PER MD ORDER. AT 0845 WILL SET TO INTERMITTED SUCTIONING AND ASSESS RESIDUAL. SAFETY PRECAUTIONS IN PLACE, BED IN LOWEST LOCKED POSITION, X2 SIDE RAILS UP AND CALL LIGHT WITHIN REACH. WILL CONTINUE TO MONITOR.
--- NOTE | 2018-09-25 07:19 | NUR ---
MS/RN CLOSING NOTES PT RESTING COMFORTABLY IN BED. WITH EYES CLOSED BUT OPENS EYES TO NAME. ON 2L O2 VIA NC, BREATHING EVEN AND UNLABORED. HOB ELEVATED. ENCOURAGED INCENTIVE SPIROMETER USE DURING SHIFT. GT IN PLACE, RAN GLUCERNA 1.2 [id number], STOPPED AND FLUSHED AT 0645. ENDORSED TO DAY SHIFT TO SUCTION FOR 15MINS, NOTE RESIDUAL AND RELAY TO DR. ADKINS FOR FURTHER ORDERS. PER PHARMACY, VITAMIN B COMPLEX NOT AVAILABLE. SHER IN PLACE AND DRAINING TO GRAVITY. DRESSING TO ABDOMEN CHANGED, INCISION SITE CLOSED WITH VINICIUS. NO SIGNIFICANT CHANGES OVERNIGHT. KEPT COMFORTABLE AND ALL NEEDS MET. BED REMAINS IN LOW/LOCKED POSITION WITH CALL LIGHT IN REACH, BILATERAL UPPER SIDE RAILS IN PLACE. ENDORSED TO DAY SHIFT RN PAPITO.
[2018-09-25 07:50] VITALS: BP 127/77
[2018-09-25 07:57] LABS: CALCIUM, SERUM 7.8 mg/dL (8.5-10.1); CREATININE 0.8 mg/dL (0.6-1.3); PHOSPHORUS 1.8 mg/dL (2.5-4.9); POTASSIUM 3.2 mmol/L (3.5-5.1)
[2018-09-25 08:05] LABS: BASOPHILS # (AUTO) 0.1 /CMM (0.0-0.2); BASOPHILS % (AUTO) 0.6 % (0.0-2.0); EOSINOPHILS % (AUTO) 1.3 % (0.0-6.0); HEMATOCRIT 41 % (39-51); HEMOGLOBIN 13.3 g/dL (13.5-17.5); LYMPHOCYTES # (AUTO) 0.5 /CMM (0.8-4.8); LYMPHOCYTES % (AUTO) 3.1 % (20.0-44.0); MEAN CORPUSCULAR HGB CONC 33 g/dl (31.0-36.0); MEAN CORPUSCULAR VOLUME 86 fL (80-96); MONOCYTES # (AUTO) 1.6 /CMM (0.1-1.30); NEUTROPHILS # (AUTO) 13.2 /CMM (1.8-8.9); PLATELET COUNT (AUTO) 289 /CMM (150-450); RED BLOOD CELL COUNT(AUTO) 4.69 MIL/uL (4.5-6.0); WHITE BLOOD COUNT (AUTO) 15.5 K/uL (4.3-11.0)
[2018-09-25] MEDS: PANTOPRAZOLE 40 MG VIAL IV SCH (08:42)
[2018-09-25] MEDS: HEPARIN SODIUM, PORCINE 5000 UNITS/1 ML VIAL SQ SCH (08:43)
[2018-09-25] MEDS: ENSURE CLEAR 237 ML LIQUID (MIX BERRY) PO SCH ×3 (08:51→17:53)
[2018-09-25] MEDS: CIPROFLOXACIN IV RTU 400 MG in PREMIX 1 EA IV SCH (11:02)
[2018-09-25] MEDS: HYDROMORPHONE INJ 2 MG/ML DISP.SYRIN IV PRN (11:05)
[2018-09-25] MEDS: POTASSIUM CL. PREMIX PERIPHER. 50 ML IV SCH ×4 (12:10→17:54)
[2018-09-25] MEDS ORDERED: K PHOS NEUTRAL 250 MG TABLET PO ONE (13:30)
--- NOTE | 2018-09-25 14:39 | NUR ---
SW received a call from case aide Li Desir stating that pt's is requesting a verification of admission letter. SW typed letter and gave it to pt's Sera Middleton.
[2018-09-25 16:00] VITALS: BP 97/44
[2018-09-25 16:20] VITALS: BP 107/54
[2018-09-25] MEDS ORDERED: MAGNESIUM HYDROXIDE 30 ML UDC GT PRN (17:30)
[2018-09-25] MEDS ORDERED: BISACODYL SUPP (10 MG) 10 MG/SUPP.RECT SUPP.RECT RC PRN (17:30)
--- NOTE | 2018-09-25 19:04 | NUR ---
RN CLOSING NOTES PT RESTING COMFORTABLY IN BED. NO APPARENT S/S OF PAIN, DISTRESS OR SOB AT THIS TIME. PT HAS A SHER CATHETER INTACT, PT INFORMED THAT PANDA GARDINER ORDERED FOR SHER TO BE DISCONTINUED, PT CONTINUES TO REFUSE. PT NEEDS UA AND UC. PT HAS A RIGHT AC #22 INTACT AND PATENT. PT HAS GTUBE FEEDING AT 30ML/HR. NO RESIDUAL NOTED. SAFETY PRECAUTIONS IN PLACE, BED IN LOWEST LOCKED POSITION, X2 SIDE RAILS UP AND CALL LIGHT WITHIN REACH. WILL ENDORSE TO GIN INSPECTOR FOR CONTINUITY OF CARE.
--- NOTE | 2018-09-25 19:15 | NUR ---
MS/RN OPENING NOTES PT RECEIVED RESTING COMFORTABLY IN BED. A/OX3. FAMILY AT BEDSIDE. ON 2L O2 VIA NC, BREATHING EVEN AND UNLABORED. DENIES SOB AND PAIN AT THIS TIME IV TO RAC PATENT AND INTACT RUNNING IVF ORDERED. GT FEEDING RUNNING GLUCERNA 1.2 AT 30 CC/HR ALONG WITH PO CCHO PUREE DIET. SHER IN PLACE AND DRAINING TO GRAVITY. TO COLLECT URINE SPECIMEN FOR UA/URINE CX AND DC SHER PER PANDA GARDINER NP. PT AWARE AND VERBALIZES UNDERSTANDING. BED IN LOW/LOCKED POSITION, HOB ELEVATED. BILATERAL UPPER SIDE RAILS IN PLACE. WILL CONTINUE TO MONITOR
[2018-09-25 20:00] VITALS: BP 106/56
[2018-09-25] MEDS: CYANOCOBALAMIN 1,000 MCG/ML VIAL IM SCH (21:08)
--- NOTE | 2018-09-25 22:15 | NUR ---
MS/RN NOTES SHER REMOVED. PT TOLERATED WELL
--- NOTE | 2018-09-25 22:30 | NUR ---
MS/RN NOTES CALLED LAB FOR SPECIMEN PASTE WORKER
[2018-09-26] MEDS: GLUCERNA 1.2 1,000 ML BOTTLE GT PRN (01:17)
[2018-09-26] MEDS: METRONIDAZOLE 500MG/ NS 100ML 500 MG in PREMIX 1 EA IV SCH ×3 (06:10→21:47)
[2018-09-26 06:22] LABS: BASOPHILS % (AUTO) 0.3 % (0.0-2.0); EOSINOPHILS % (AUTO) 2.3 % (0.0-6.0); HEMATOCRIT 36 % (39-51); HEMOGLOBIN 11.9 g/dL (13.5-17.5); LYMPHOCYTES # (AUTO) 0.6 /CMM (0.8-4.8); LYMPHOCYTES % (AUTO) 4.8 % (20.0-44.0); MEAN CORPUSCULAR HGB CONC 33 g/dl (31.0-36.0); MEAN CORPUSCULAR VOLUME 86 fL (80-96); MONOCYTES # (AUTO) 1.3 /CMM (0.1-1.30); MONOCYTES % (AUTO) 9.8 % (2.0-12.0); NEUTROPHILS # (AUTO) 11.1 /CMM (1.8-8.9); NEUTROPHILS % (AUTO) 82.8 % (43.0-81.0); PLATELET COUNT (AUTO) 262 /CMM (150-450); RED BLOOD CELL COUNT(AUTO) 4.16 MIL/uL (4.5-6.0); WHITE BLOOD COUNT (AUTO) 13.4 K/uL (4.3-11.0)
[2018-09-26 06:32] LABS: APPEARANCE,URINE SL CLOUDY (CLEAR); BILIRUBIN,URINE NEGATIVE (NEGATIVE); BLOOD, URINE 2+ Ery/uL (NEGATIVE); COLOR,URINE DARK YELLO (YELLOW); KETONES,URINE TRACE (NEGATIVE); LEUKOCYTE ESTERASE ,URINE NEGATIVE (NEGATIVE); NITRITE, URINE NEGATIVE (NEGATIVE); PROTEIN,URINE TRACE mg/dl (NEGATIVE); UGLUCOSE 3+ mg/dL (NEGATIVE); UROBILINOGEN,URINE 0.2 EU/dL (0.2)
[2018-09-26] MEDS: INSULIN REGULAR, HUMAN 100 UNIT/ML 3 ML VIAL SQ PRN ×4 (06:33→21:52)
[2018-09-26] MEDS: BLOOD SUGAR DIAGNOSTIC 1 EACH STRIP IN SCH ×4 (06:34→21:47)
[2018-09-26] MEDS: SUCRALFATE 1 G TABLET PO SCH ×4 (06:34→21:48)
[2018-09-26 06:40] LABS: CALCIUM, SERUM 7.6 mg/dL (8.5-10.1); CREATININE 0.7 mg/dL (0.6-1.3); POTASSIUM 3.4 mmol/L (3.5-5.1)
[2018-09-26 07:03] LABS: BACTERIA,URINE None seen /HPF (None Seen); SQUAMOUS EPITHELIAL CELL,UR Few /HPF (None Seen); WBC,URINE 0-2 /HPF (0-3)
--- NOTE | 2018-09-26 07:34 | NUR ---
MS/RN CLOSING NOTES PT RESTING COMFORTABLY IN BED. WITH EYES CLOSED, OPENS SPONTANEOUSLY. ON 2L O2 VIA NC ,BREATHING EVEN AND UNLABORED. DENIES SOB OR PAIN AT THIS TIME. WOUND CARE PROVIDED ORDERED. ENCOURAGED INCENTIVE SPIROMETER. TURNED/REPOSITIONED Q2H. KEPT CLEAN AND DRY. GT FEEDING RUNNING ORDERED WITH NO RESIDUALS. ENCOURAGED PO INTAKE TOLERATED. NO SIGNIFICANT CHANGES OVERNIGHT. KEPT COMFORTABLE. ALL NEEDS MET. HOB ELEVATED AT ALL TIMES. BILATERAL UPPER SIDE RAILS IN PLACE. BED IN LOW/LOCKED POSITION WITH CALL LIGHT IN REACH. ENDORSED TO DAY SHIFT RN PAPITO.
--- NOTE | 2018-09-26 07:40 | NUR ---
RN NOTES PATIENT ASLEEP BUT EASILY AWAKEN, BREATHING EVEN AND UNLABORED, NO SOB NOTED, GTF ONGOING AND TOLERATING WELL, NO RESIDUAL NOTED AT THIS TIME. ON LOW AIR LOSS MATTRESS FOR SKIN MANAGEMENT, NEEDS ATTENDED AND MET, CALL LIGHT WITHIN REACH, WILL CONTINUE TO MONITOR.
[2018-09-26 08:00] VITALS: BP 116/70
[2018-09-26] MEDS: PANTOPRAZOLE 40 MG VIAL IV SCH (08:42)
[2018-09-26] MEDS: ENSURE CLEAR 237 ML LIQUID (MIX BERRY) PO SCH ×3 (08:43→17:00)
[2018-09-26] MEDS: LEVOFLOXACIN 500 MG /D5W 100ML 500 MG in PREMIX 1 EA IV SCH (09:06)
--- NOTE | 2018-09-26 09:50 | NUR ---
RN NOTES PATIENT TURNED AND REPOSITIONED, MEPILEX APPLIED TO SACRAL AREA, SKIN CARE AND BED BATH PROVIDED, LINEN CHANGED. PATIENT'S GTF HELD DURING ADL CARE. PANDA GARDINER PARK INTERPRETIVE RANGER SEEN AND EXAMINED THE PATIENT. GTF FEEDING RESUME. HOB KEPT ELEVATED. NEEDS ATTENDED, CALL LIGHT WITHIN REACH ,WILL CONTINUE TO MONITOR.
[2018-09-26] MEDS ORDERED: POTASSIUM CHLORIDE 20 MEQ TAB.PRT.SR PO SCH (11:30)
[2018-09-26] MEDS: ONDANSETRON HCL/PF 4 MG/2 ML VIAL IV PRN (14:27)
[2018-09-26 16:00] VITALS: BP 114/58
--- NOTE | 2018-09-26 16:15 | NUR ---
RN NOTES PATIENT ASLEEP BUT EASILY AWAKEN, TURNED AND REPOSITIONED, NO SOB NOTED, C/O MILD PAIN BUT TOLERABLE AT THIS TIME, FAMILY AT BEDSIDE, NEEDS ATTENDED AND MET, CALL LIGHT WITHIN REACH, WILL CONTINUE TO MONITOR.
--- NOTE | 2018-09-26 17:10 | NUR ---
RN NOTES RECEIVED A CALL FROM DR. ADKINS, GAVE UPDATE RE: THE PATIENT'S CONDITION, RECEIVED AN ORDER TO INCREASE GLUCERNA TO 50ML/HR, WILL RECHECK RESIDUAL IN AN HOUR. PATIENT ASSISTED TO EDGE OF THE BED, WAS ABLE TO SIT FOR APPROX 5 MINUTES, THEN ASSISTED BACK TO BED, THEN TURNED AND REPOSITIONED, ENCOURAGED THE USE OF INCENTIVE SPIROMETER. NEEDS ATTENDED AND MET, CALL LIGHT WITHIN REACH, WILL CONTINUE OT MONITOR.
--- NOTE | 2018-09-26 18:34 | NUR ---
RN NOTES PATIENT A/OX3, BREATHING EVEN AND UNLABORED, NO SOB NOTED, HOB ELEVATED, GTF ONGOING AT 50ML/HR WITH NO RESIDUAL AT THIS TIME. AT BEDSIDE, RIGHT HAND G22 SALINE LOCK, PATENT AND FLUSHES WELL, PER , PATIENT WAS ABLE TO TOLERATE SOME SOUP AND DRINK SUPPLEMENTS, ALL NEEDS ATTENDED AND MET, CALL LIGHT WITHIN REACH, WILL ENDORSE TO COST ACCOUNTING CLERK FOR PAPITO.
--- NOTE | 2018-09-26 19:05 | NUR ---
RN INITIAL NOTES: RECEIVED REPORT FROM SUMA STAUFFER. MET WITH PT AND FAMILY AT BED SIDE, PT A/O X3, ON 2L OXYGEN VIA NC, RESPIRATION EVEN AND UNLABORED, IV ACCESS PATENT AND FLUSHING WELL, ON HL. PT S/P EXPLORATORY LAPAROTOMY ON 09/20, S/P EGD 09/25, CURRENTLY RECEIVING FEEDING GLUCERNA AT 50ML/HR. ABDOMEN SOFT TOT TOUCH WITH ACTIVE BOWEL SOUND HEARD UPON AUSCULTATION OF THE ABDOMEN. RESIDUAL AND PATENCY CHECKED, RESIDUAL OBTAINED IS 10ML. DISCUSSED WITH PT AND FAMILY REGARDING PLAN OF CARE FOR TONIGHT. BLE OFFLOADED ON PILLOWS. URINAL WITHIN REACH. PT OKAY TO HAVE PO INTAKE. SAFETY PRECAUTIONS FOR FALL INITIATED, CALL LIGHT IN REACH, WILL CONTINUE MONITORING PT.
[2018-09-26 20:00] VITALS: BP 107/59
[2018-09-26] MEDS: CYANOCOBALAMIN 1,000 MCG/ML VIAL IM SCH (21:44)
--- NOTE | 2018-09-26 21:52 | NUR ---
ACCU CHECK 193: BLOOD SUGAR 193, 3 UNITS OF INSULIN ADMINISTERED PER SLIDING SCALE, WILL MONITOR FOR ANY S/S OF HYPOGLYCEMIA
[2018-09-26] MEDS ORDERED: SIMETHICONE 80 MG TAB.CHEW PO PRN (22:00)
--- NOTE | 2018-09-26 22:00 | NUR ---
RN NOTES: CONTACTED SENIOR INTEGRATION DEVELOPER TRACK WELDER REGARDING PT'S REQUEST FOR SIMETHICONE TO HELP PASS GAS, PRN SIMETHICONE 80 MG CHEWABLE TAB BID ORDERED BY TRACK WELDER
--- NOTE | 2018-09-26 22:16 | NUR ---
PRN SIMETHICONE: PT REQUEST MEDICATION TO HELP HIM PASS GAS, PRN SIMETHICONE 80MG CHEWABLE TAB ADMINISTERED AT THIS TIME.
[2018-09-27] MEDS: GLUCERNA 1.2 1,000 ML BOTTLE NG PRN (02:54)
--- NOTE | 2018-09-27 02:55 | NUR ---
NEW FEEDING BAG: ABOVE TUBE FEEDING COMPLETED/FINISHED AT THIS TIME, WILL ADMINISTER NEW BAG OF FEEDING GLUCERNA 1.2 AT 50CC/HR ORDERED
[2018-09-27] MEDS: METRONIDAZOLE 500MG/ NS 100ML 500 MG in PREMIX 1 EA IV SCH ×3 (04:59→21:04)
[2018-09-27] MEDS: BLOOD SUGAR DIAGNOSTIC 1 EACH STRIP IN SCH ×4 (06:27→21:04)
[2018-09-27] MEDS: INSULIN REGULAR, HUMAN 100 UNIT/ML 3 ML VIAL SQ PRN ×4 (06:28→21:10)
--- NOTE | 2018-09-27 06:53 | NUR ---
RN CLOSING NOTES: PT REMAINS ON 2L OXYGEN VIA NC, RESPIRATION EVEN AND UNLABORED, IV ACCESS REMAINS PATENT AND FLUSHING WELL, ON HL. RECEIVING FEEDING GLUCERNA AT 50ML/HR. ABDOMEN REMAINS SOFT TO TOUCH WITH ACTIVE BOWEL SOUND , HAD 1 BM, FORMED. TOLERATED PO INTAKE, NO REPORTS OF NAUSEA OR VOMITING. BLE OFFLOADED ON PILLOWS. URINAL WITHIN REACH. SAFETY PRECAUTIONS FOR FALL REMAINS ENGAGED, CALL LIGHT IN REACH, WILL ENDORSE TO DAY RN FOR CONTINUITY OF CARE.
--- NOTE | 2018-09-27 07:15 | NUR ---
RN NOTES PATIENT A/OX3, BREATHING EVEN AND UNLABORED, NO SOB NOTED AT THIS TIME, KEPT PATIENT ON ROOM AIR WITH SPO2 OF 94%. ENCOURAGED THE USE OF INCENTIVE SPIROMETER, PATIENT VERBALIZED HE FEELS THAT HE CAN BE MORE ACTIVE TODAY. I ENCOURAGED THE PATIENT TO SIT ON A CHAIR AND THE PATIENT AGREED TO DO SO AFTER BREAKFAST. ON GTF AT 50ML/HR WITH RESIDUAL OF 15ML. NEEDS ATTENDED, CALL LIGHT WITHIN REACH, WILL CONTINUE TO MONITOR.
[2018-09-27 08:00] VITALS: BP 114/62
[2018-09-27] MEDS: LEVOFLOXACIN 500 MG /D5W 100ML 500 MG in PREMIX 1 EA IV SCH (08:14)
[2018-09-27] MEDS: SUCRALFATE 1 G TABLET PO SCH ×4 (08:14→21:05)
[2018-09-27] MEDS: PANTOPRAZOLE 40 MG VIAL IV SCH (08:15)
[2018-09-27] MEDS: ENSURE CLEAR 237 ML LIQUID (MIX BERRY) PO SCH ×3 (08:16→16:42)
[2018-09-27 08:36] LABS: BASOPHILS % (AUTO) 0.3 % (0.0-2.0); EOSINOPHILS % (AUTO) 2.3 % (0.0-6.0); HEMATOCRIT 36 % (39-51); HEMOGLOBIN 11.8 g/dL (13.5-17.5); LYMPHOCYTES # (AUTO) 0.5 /CMM (0.8-4.8); MEAN CORPUSCULAR HGB CONC 33 g/dl (31.0-36.0); MEAN CORPUSCULAR VOLUME 86 fL (80-96); MONOCYTES # (AUTO) 1.1 /CMM (0.1-1.30); MONOCYTES % (AUTO) 8.9 % (2.0-12.0); NEUTROPHILS # (AUTO) 10.5 /CMM (1.8-8.9); NEUTROPHILS % (AUTO) 84.5 % (43.0-81.0); PLATELET COUNT (AUTO) 269 /CMM (150-450); RED BLOOD CELL COUNT(AUTO) 4.22 MIL/uL (4.5-6.0); WHITE BLOOD COUNT (AUTO) 12.4 K/uL (4.3-11.0)
[2018-09-27 08:44] LABS: CALCIUM, SERUM 7.8 mg/dL (8.5-10.1); CREATININE 0.8 mg/dL (0.6-1.3); POTASSIUM 4.1 mmol/L (3.5-5.1)
[2018-09-27] MEDS ORDERED: LEVO500T2 PO (11:54)
[2018-09-27] MEDS ORDERED: NUT.237L45 NG (11:54)
[2018-09-27] MEDS ORDERED: SUCR1TAB PO (11:54)
[2018-09-27] MEDS ORDERED: Lactose-Free Food PO (11:54)
[2018-09-27] MEDS ORDERED: METR500T PO (11:54)
[2018-09-27] MEDS ORDERED: BISA10SU8 RC (11:54)
[2018-09-27] MEDS ORDERED: ONDA4TAB5 PO (11:54)
[2018-09-27] MEDS ORDERED: SIME80TA15 PO (11:54)
[2018-09-27] MEDS ORDERED: PANT40TA2 PO (11:54)
[2018-09-27] MEDS ORDERED: ACET-73 PO (11:55)
--- NOTE | 2018-09-27 12:30 | NUR ---
RN NOTES PATIENT ASSISTED TO CHAIR, AND SAT FOR AN HOUR. ATE LUNCH 25%. NO RESIDUAL NOTED AT THIS TIME.
[2018-09-27 16:00] VITALS: BP 124/63
[2018-09-27] MEDS: ONDANSETRON HCL/PF 4 MG/2 ML VIAL IV PRN (17:43)
--- NOTE | 2018-09-27 18:24 | NUR ---
RN NOTES PATIENT A/OX3, AT BEDSIDE, BREATHING EVEN AND UNLABORED, NO SOB NOTED, WOUND TREATMENT RENDERED, SURGICAL INCISION CLEAN AND DRY, NO DISCHARGE NOTED, DRESSING CHANGED, TURNED AND REPOSITIONED EVERY 2 HOURS, GTF ONGOING AT 50ML/HR, RESIDUAL RANGES FROM 10-15ML, TOLERATING WELL. HEAD OF BED ELEVATED AT ALL TIMES. NEEDS ATTENDED AND MET, CALL LIGHT WITHIN REACH, WILL ENDORSE TO HAIRSPRING SETTER FOR PAPITO.
--- NOTE | 2018-09-27 19:10 | NUR ---
RN INITIAL NOTES: RECEIVED REPORT FROM SUMA STAUFFER. PT A/O X3, ON 2L OXYGEN VIA NC, RESPIRATION EVEN AND UNLABORED, PT S/P EXPLORATORY LAPAROTOMY ON 09/20, S/P EGD 09/25, CURRENTLY RECEIVING FEEDING GLUCERNA AT 50ML/HR.IV ACCESS PATENT AND FLUSHING WELL, ON HL. RESIDUAL AND PATENCY CHECKED, RESIDUAL OBTAINED IS 20 ML. DISCUSSED WITH PT AND FAMILY REGARDING PLAN OF CARE FOR TONIGHT. BLE OFFLOADED ON PILLOWS. URINAL WITHIN REACH. PT OKAY TO HAVE PO INTAKE. SAFETY PRECAUTIONS FOR FALL INITIATED, CALL LIGHT IN REACH, WILL CONTINUE MONITORING PT.
[2018-09-27 20:37] VITALS: BP 110/57
[2018-09-27] MEDS: ZOLPIDEM TARTRATE 5 MG TABLET PO PRN (21:05)
--- NOTE | 2018-09-27 21:10 | NUR ---
PRN AMBIEN: REQUESTED BY PT TO HELP HIM SLEEP, PRN AMBIEN 5MG TAB PO ADMINISTERED AT THIS TIME
[2018-09-28] MEDS: GLUCERNA 1.2 1,000 ML BOTTLE NG PRN (02:29)
[2018-09-28] MEDS: METRONIDAZOLE 500MG/ NS 100ML 500 MG in PREMIX 1 EA IV SCH (04:13)
--- NOTE | 2018-09-28 05:19 | NUR ---
RN NOTES: PT TRANSFERRED TO [facility], ALL BELONGINGS SENT WITH THE PT UPON TRANSFER.
--- NOTE | 2018-09-28 06:49 | NUR ---
RN CLOSING NOTES: PT IN BED, AWAKE, REMAINS ON TUBE FEEDING, RESIDUAL OBTAINED 20ML, HAD ONE BM THROUGHOUT THE SHIFT, SOFT, MODERATE AMOUNT. IV ACCESS REMAINS PATENT AND FLUSHING WELL, ON HL. VS REMAINS STABLE, FOR DC TODAY IN AM. EXIT CARE COMPLETED. NEEDS ATTENDED. SAFETY PRECAUTIONS FOR FALL REMAINS ENGAGED, CALL LIGHT IN REACH. WILL ENDORSE TO DAY RN FOR CONTINUITY OF CARE.
[2018-09-28] MEDS: BLOOD SUGAR DIAGNOSTIC 1 EACH STRIP IN SCH ×4 (06:59→21:19)
[2018-09-28] MEDS: INSULIN REGULAR, HUMAN 100 UNIT/ML 3 ML VIAL SQ PRN ×2 (07:00→21:21)
[2018-09-28] MEDS: SUCRALFATE 1 G TABLET PO SCH ×4 (07:30→21:19)
[2018-09-28 08:00] VITALS: BP 126/66
[2018-09-28] MEDS: PANTOPRAZOLE 40 MG VIAL IV SCH (09:42)
[2018-09-28] MEDS: LEVOFLOXACIN 500 MG /D5W 100ML 500 MG in PREMIX 1 EA IV SCH (09:42)
[2018-09-28] MEDS: ONDANSETRON HCL/PF 4 MG/2 ML VIAL IV PRN ×3 (09:42→21:51)
[2018-09-28] MEDS: ENSURE CLEAR 237 ML LIQUID (MIX BERRY) PO SCH ×3 (09:45→17:00)
[2018-09-28] MEDS: METRONIDAZOLE 500 MG TABLET PO SCH ×2 (13:19→21:19)
[2018-09-28 16:00] VITALS: BP 115/64
[2018-09-28] MEDS: PROSOURCE / PROSTAT (PYXIS) 30 ML UDC GT SCH (17:00)
--- NOTE | 2018-09-28 19:44 | NUR ---
RN MS OPENING NOTES RECEIVED PATIENT IN BED AWAKE. ALERT AND ORIENTED X3, VERBALLY RESPONSIVE, ABLE TO MAKE NEEDS KNOWN. FAMILY AT BEDSIDE. BREATHING EVEN AND UNLABORED. NO SOB NOTED. ON 4L OXYGEN VIA NC. NO COMPLAINTS OF PAIN OR DISCOMFORT. NO FACIAL GRIMACING. IV HAND G#20 INTACT AND PATENT. SKIN DRY AND WARM TO TOUCH. AFEBRILE. PATIENT NOTED WITH GTUBE FEEDING - INTACT AND PATENT, INFUSING GLUCERNA AT 50ML/HR. ALL OTHER NEEDS ATTENDED TO. SAFETY MEASURES IN PLACE. CALL LIGHT WITHIN REACH. WILL CONTINUE TO MONITOR.
[2018-09-28 20:00] VITALS: BP 131/78
[2018-09-28] MEDS: ZOLPIDEM TARTRATE 5 MG TABLET PO PRN (21:19)
[2018-09-29] MEDS: METRONIDAZOLE 500 MG TABLET PO SCH (04:12)
[2018-09-29] MEDS: GLUCERNA 1.2 1,000 ML BOTTLE NG PRN (04:18)
--- NOTE | 2018-09-29 05:32 | NUR ---
EH DANIELS NOTES PATIENT REFUSED BEDBATH THIS MORNING. PATIENT WAS REPOSITIONED Q2H. SACRAL CLEANSED AND APPLIED ZGUARD. AND MEPILEX CHANGED. WILL CONTINUE TO MONITOR Addendum: 09/29/18 at 0648 by BILL SHARMA RN ERROR: EH JACKSON*
[2018-09-29] MEDS: BLOOD SUGAR DIAGNOSTIC 1 EACH STRIP IN SCH (06:30)
[2018-09-29] MEDS: INSULIN REGULAR, HUMAN 100 UNIT/ML 3 ML VIAL SQ PRN (06:31)
--- NOTE | 2018-09-29 06:48 | NUR ---
RN MS CLOSING NOTES PATIENT RESTING IN BED. NO ACUTE CHANGES THROUGHOUT SHIFT. BREATHING EVEN AND UNLABORED. NO SOB NOTED. ON 2L OXYGEN VIA NC. NO COMPLAINTS OF PAIN OR DISCOMFORT. NO FACIAL GRIMACING. IV HAND G#20 INTACT AND PATENT. SKIN DRY AND WARM TO TOUCH. AFEBRILE. GTUBE FEEDING - INTACT AND PATENT, INFUSING GLUCERNA AT 50ML/HR. KEPT CLEAN, DRY AND COMFORTABLE. ALL OTHER NEEDS ATTENDED TO. SAFETY MEASURES IN PLACE. CALL LIGHT WITHIN REACH. WILL ENDORSE TO ONCOMING NURSE FOR PAPITO.
[2018-09-29] MEDS: SUCRALFATE 1 G TABLET PO SCH (07:30)
[2018-09-29 08:00] VITALS: BP 118/63
[2018-09-29] MEDS: PANTOPRAZOLE 40 MG VIAL IV SCH (09:00)
[2018-09-29] MEDS ORDERED: LEVOFLOXACIN (500MG) 500 MG TABLET PO SCH (09:00)
[2018-09-29] MEDS: ENSURE CLEAR 237 ML LIQUID (MIX BERRY) PO SCH (09:00)
[2018-09-29] MEDS: PROSOURCE / PROSTAT (PYXIS) 30 ML UDC GT SCH (09:00)
--- NOTE | 2018-09-29 09:16 | NUR ---
WOUND CARE FOLLOWUP: PT SEEN FOR FOLLOWUP OF SACRAL DEEP TISSUE INJURY WHICH REMAINS INTACT. RECOMMENDATIONS MADE FOR WOUND CARE AND SKIN PROTECTION. DISCUSSED WITH NURSING STAFF. PT ON FIRST STEP [facility]. PT ABLE TO ASSIST WITH TURNING AND REPOSITIONING IN BED. WILL SEE PRN. MARTIN IN AGREEMENT WITH PLAN OF CARE. Addendum: 09/29/18 at 0918 by SHANNAN YEE WNDNU Amended: Links added.
== END 2018-09-29 14:35 | DRG 326 ==
LOC: ER 13:16 → TELE 22:26 → MED 09-18 01:06 → MEDSG2 09-20 18:50 → MED 09-28 05:49
PROVIDERS: ADMIT Hospitalist; ATTEND Nurse Practitioner Acute Care
PROC: 0DNU0ZZ Release Omentum, Open Approach (ICD-10-PCS; principal; 2018-09-19)
PROC: 0DH60UZ Insertion of Feeding Device into Stomach, Open Approach (ICD-10-PCS; principal; 2018-09-19)
PROC: 0WQF0ZZ Repair Abdominal Wall, Open Approach (ICD-10-PCS; principal; 2018-09-19)
PROC: 0DN80ZZ Release Small Intestine, Open Approach (ICD-10-PCS; principal; 2018-09-19)
PROC: 0DB68ZX Excision of Stomach, Via Natural or Artificial Opening Endoscopic, Diagnostic (ICD-10-PCS; 2018-09-24)
PROC: 0DB38ZX Excision of Lower Esophagus, Via Natural or Artificial Opening Endoscopic, Diagnostic (ICD-10-PCS; 2018-09-24)
DX: K42.0 Umbilical hernia with obstruction, without gangrene (principal); N17.0 Acute kidney failure with tubular necrosis; E43 Unspecified severe protein-calorie malnutrition; J15.9 Unspecified bacterial pneumonia; E87.0 Hyperosmolality and hypernatremia; K86.2 Cyst of pancreas; K56.50 Intestinal adhesions [bands], unspecified as to partial versus complete obstruction; E11.65 Type 2 diabetes mellitus with hyperglycemia; E86.0 Dehydration; K42.9 Umbilical hernia without obstruction or gangrene; K44.9 Diaphragmatic hernia without obstruction or gangrene; I50.9 Heart failure, unspecified; I11.0 Hypertensive heart disease with heart failure; D72.829 Elevated white blood cell count, unspecified; E83.39 Other disorders of phosphorus metabolism; E87.6 Hypokalemia; D64.9 Anemia, unspecified; E88.09 Other disorders of plasma-protein metabolism, not elsewhere classified; E86.9 Volume depletion, unspecified; R91.8 Other nonspecific abnormal finding of lung field; Z68.25 Body mass index [BMI] 25.0-25.9, adult; K59.00 Constipation, unspecified; K29.70 Gastritis, unspecified, without bleeding; K20.9 Esophagitis, unspecified; Z98.84 Bariatric surgery status; E83.42 Hypomagnesemia
CPT/HCPCS: 36415; 71045-TC; 74018; 74246-TC; 74250-TC; 80048-TC; 80053-TC; 80061-TC; 80076-TC; 81000-TC; 82962-TC; 83735-TC; 84100-TC; 84443-TC; 84484-TC; 85025-TC; 85730-TC; 86850-TC; 87081-TC; 87086-TC; 88302-TC; 88305-TC; 88313-TC; 88342; 93307-TC; 94799-TC; 97110-TC; 97116-TC; 97530-TC; A4216; A6209; A6253; A6402; C1726; C9113; G0378; J0330; J0690; J0744; J1170; J1644; J1815; J1956; J2250; J2370; J2405; J2704; J3010; J3420; J3475; J3480; J3490; J7040; J7042; J7050; J7070; J7120; Q9963